=== PATIENT | male | born 1940 | race Hispanic/Latino ===

== ENCOUNTER 2016-11-28 18:09 | Emergency (ER) | payer MEDICARE, OTHER ==
[2016-11-28] MEDS ORDERED: Ondansetron HCl/PF 4 MG/2 ML Vial ONE (18:43)
[2016-11-28 18:52] LABS: #Basophils 0.1 thou/uL (0.0-0.2); #Eosinphils 0.3 thou/uL (0.0-0.7); #Lymphocytes 1.9 thou/uL (1.20-3.40); #Monocytes 0.5 thou/uL (0.11-0.59); #Neutrophils 2.2 thou/uL (1.40-6.50); %Basophils 1.7 % (0.0-1.0); %Eosinophils 6.1 % (0.0-10.0); %Lymphocytes 37.7 % (21.0-51.0); %Monocytes 9.3 % (0.0-10.0); %Neutrophils 45.3 % (42.0-75.0); Mean Corpuscular HGB CONC 33.7 g/dL (32.0-36.0); Mean Corpuscular Hemoglobin 32.1 pg (27.0-31.0); Mean Corpuscular Volume 95.2 fl (80.0-94.0); Mean Platelet Volume 6.4 fL (7.4-10.4); Platelet Count 192 thou/uL (130-400); RBC Distribution Width 11.5 % (11.5-14.5); Red Blood Cell (RBC) Count 4.37 mill/uL (4.70-6.10); White Blood Cell (WBC) Count 4.9 thou/uL (4.8-10.8)
[2016-11-28 18:54] LABS: INR-International Normal Ratio 1.1; PTT 24.9 SEC (22.9-36.1); Prothrombin Time 14.1 SEC (12.0-14.7)
[2016-11-28 18:56] LABS: Base Excess 2.8 mEq/L (-2 - +2); Hemoglobin (Hb) 13.7 g/dL (12.6-17.4)
[2016-11-28 19:05] LABS: ALT (SGPT) 14 U/L (0-55); AST (SGOT) 25 U/L (5-34); Albumin 3.5 g/dL (3.4-4.8); Alkaline Phosphatase 77 U/L (40-150); Anion Gap 12 mmol/L (10-20); BUN (Urea Nitrogen) 13 mg/dL (8.4-25.7); Bilirubin, Total 0.4 mg/dL (0.2-1.2); CK (CPK) 74 U/L (30-200); Calc. Creatinine Clearance 0 mL/min (70-130); Calcium 8.7 mg/dL (7.8-10.44); Carbon Dioxide 22 mmol/L (23-31); Chloride 107 mmol/L (98-107); Estimated GFR-MDRD 82; Globulin 3.8 g/dL (2.4-3.5); Glucose 96 mg/dL (83-110); Lipase 28 U/L (8-78); Protein, Total 7.3 g/dL (5.8-8.1); Sodium 137 mmol/L (136-145)
[2016-11-28 19:10] LABS: CKMB 1.1 ng/mL (0-6.6); Troponin I Less than 0.010 ng/mL (< 0.028)
[2016-11-28] MEDS ORDERED: Lidocaine Viscous Sol 2% 15 ml UD Cup ONE (20:01)
[2016-11-28] MEDS ORDERED: Mag-Al Plus 1200 MG/1200 MG/120 MG/30 ML UDCUP ONE (20:01)
[2016-11-28] MEDS ORDERED: Pantoprazole 40 MG VIAL ONE (20:01)
[2016-11-28 20:09] LABS: Bilirubin Negative (Negative); Blood, Urine Negative (Negative); Clarity Clear (Clear); Glucose, Urine (Dipstick) Negative (Negative); Leukocyte Negative (Negative); Nitrite Negative (Negative); Protein, Urine (Dipstick) Negative (Neg-Trace); pH, Urine 7.5 (5.0-9.0)
== END 2016-11-28 20:17 | disposition home or self-care (01) ==
LOC: BURERS 18:09
DX: K29.00 Acute gastritis without bleeding (principal); Z79.899 Other long term (current) drug therapy
CPT/HCPCS: 36416; 80053; 81003; 82550; 82553; 82805; 83605; 83690; 83880; 84484; 85025; 85610; 85730; 87040; 87086; 93005; 94760; 96374; 96375; C9113; J2405

== ENCOUNTER 2018-09-01 12:15 | Outpatient (CLI) | payer MEDICARE, OTHER ==
--- NOTE | 2018-09-01 13:44 | RAD ---
KUB: Comparison: None. History: Constipation. FINDINGS: Single view of the abdomen shows a nonspecific, nonobstructed bowel gas pattern. No suspicious calcif ications are seen. IMPRESSION: Unremarkable exam. POS: TAMIRH
--- NOTE | 2018-09-01 14:03 | RAD ---
THREE VIEWS LUMBOSACRAL SPINE: Comparison: None. History: Low back pain. FINDINGS: Three views of the lumbosacral spine shows normal height and alignment of the vertebral bodies withou t fracture or subluxation. There are small osteophytes throughout the lumbar spine. The L5-S1 interve rtebral disc is narrowed. Posterior facet arthrosis is seen in the lower lumbosacral spine. IMPRESSION: Degenerative changes of the lumbar spine without acute osseous abnormality. POS: CRYSTAL
== END 2018-09-01 12:16 | disposition home or self-care (01) ==
LOC: BURRAD 12:15
PROVIDERS: ATTEND Family Medicine
DX: M54.5 Low back pain (principal); K59.00 Constipation, unspecified; M47.816 Spondylosis without myelopathy or radiculopathy, lumbar region
CPT/HCPCS: 72100; 74018

== ENCOUNTER 2018-11-17 16:50 | Emergency (ER) | payer MEDICARE, OTHER ==
[2018-11-17 18:01] LABS: #Lymphocytes 1.3 thou/uL (1.20-3.40); #Monocytes 0.4 thou/uL (0.11-0.59); #Neutrophils 2.4 thou/uL (1.40-6.50); %Basophils 1.1 % (0.0-1.0); %Eosinophils 1.2 % (0.0-10.0); %Monocytes 8.5 % (0.0-10.0); %Neutrophils 58.2 % (42.0-75.0); Hemoglobin 14.9 g/dL (14.0-18.0); Mean Corpuscular HGB CONC 34.7 g/dL (32.0-36.0); Mean Corpuscular Hemoglobin 31.2 pg (27.0-31.0); Mean Corpuscular Volume 90.1 fL (78.0-98.0); Mean Platelet Volume 5.2 fL (7.4-10.4); Platelet Count 191 thou/uL (130-400); RBC Distribution Width 16.3 % (11.5-14.5); Red Blood Cell (RBC) Count 4.77 mill/uL (4.70-6.10); White Blood Cell (WBC) Count 4.1 thou/uL (4.8-10.8)
--- NOTE | 2018-11-17 18:07 | CT ---
EXAM: BRAIN CT WITHOUT IV CONTRAST: 11/17/18 HISTORY: Altered mental status. Fall. Mild atrophy and chronic white matter ischemic change. No mass or midline shift. No intra or extra-a xial hemorrhage. Sinuses and mastoids are clear. IMPRESSION: Mild atrophy and chronic white matter ischemic change. No mass or bleed. POS: RRE
--- NOTE | 2018-11-17 18:10 | RAD ---
UPRIGHT PORTABLE CHEST ONE VIEW: 11/17/18 HISTORY: Fever and back pain. COMPARISON: 02/05/14. FINDINGS: Heart size is normal. the lungs are clear. No confluent pneumonia, overt edema or pleural effusion. IMPRESSION: No acute intrathoracic disease. No evidence for pneumonia. Stable from prior study. POS: RRE
[2018-11-17 18:17] LABS: ALT (SGPT) 10 U/L (8-55); AST (SGOT) 17 U/L (5-34); Acetaminophen Less than 6.0 mcg/mL (10.0-30.0); Albumin 3.9 g/dL (3.4-4.8); Alcohol Less than 10 mg/dL (Less than 10); Alkaline Phosphatase 97 U/L (40-150); Anion Gap 12 mmol/L (10-20); BUN (Urea Nitrogen) 16 mg/dL (8.4-25.7); Bilirubin, Total 0.4 mg/dL (0.2-1.2); Calc. Creatinine Clearance 0 mL/min (70-130); Calcium 9.6 mg/dL (7.8-10.44); Carbon Dioxide 28 mmol/L (23-31); Chloride 103 mmol/L (98-107); Estimated GFR-MDRD 75; Globulin 3.9 g/dL (2.4-3.5); Glucose 84 mg/dL (83-110); Potassium 4.7 mmol/L (3.5-5.1); Protein, Total 7.8 g/dL (5.8-8.1); Salicylate Less than 8.0 mg/dL (15.0-30.0); Sodium 138 mmol/L (136-145)
== END 2018-11-17 19:05 | disposition home or self-care (01) ==
LOC: BURERS 16:50
DX: S00.83XA Contusion of other part of head, initial encounter (principal); K21.9 Gastro-esophageal reflux disease without esophagitis; M19.90 Unspecified osteoarthritis, unspecified site; W19.XXXA Unspecified fall, initial encounter; Z79.899 Other long term (current) drug therapy
CPT/HCPCS: 36415; 70450; 71045; 80053; 80307; 85025

== ENCOUNTER 2019-04-27 07:52 | Emergency (ER) | payer MEDICARE, OTHER ==
[2019-04-27] MEDS ORDERED: Iopamidol 370 76% 150 ML VIAL FS ONE (08:13)
[2019-04-27 08:35] LABS: #Basophils 0.1 thou/uL (0.0-0.2); #Eosinphils 0.1 thou/uL (0.0-0.7); #Lymphocytes 1.6 thou/uL (1.20-3.40); #Monocytes 0.4 thou/uL (0.11-0.59); #Neutrophils 1.9 thou/uL (1.40-6.50); %Basophils 1.9 % (0.0-1.0); %Eosinophils 2.3 % (0.0-10.0); %Lymphocytes 39.2 % (21.0-51.0); %Monocytes 9.4 % (0.0-10.0); %Neutrophils 47.3 % (42.0-75.0); Hemoglobin 13.8 g/dL (14.0-18.0); Mean Corpuscular HGB CONC 33.6 g/dL (32.0-36.0); Mean Corpuscular Hemoglobin 31.3 pg (27.0-31.0); Mean Corpuscular Volume 93.3 fL (78.0-98.0); Mean Platelet Volume 5.6 fL (7.4-10.4); Platelet Count 178 thou/uL (130-400); Red Blood Cell (RBC) Count 4.41 mill/uL (4.70-6.10); White Blood Cell (WBC) Count 3.9 thou/uL (4.8-10.8)
[2019-04-27 08:52] LABS: ALT (SGPT) 10 U/L (8-55); AST (SGOT) 16 U/L (5-34); Albumin 3.6 g/dL (3.4-4.8); Alkaline Phosphatase 75 U/L (40-150); Anion Gap 11 mmol/L (10-20); BUN (Urea Nitrogen) 14 mg/dL (8.4-25.7); Bilirubin, Total 0.6 mg/dL (0.2-1.2); Calc. Creatinine Clearance 0 mL/min (70-130); Calcium 9.3 mg/dL (7.8-10.44); Carbon Dioxide 27 mmol/L (23-31); Chloride 106 mmol/L (98-107); Estimated GFR-MDRD 80; Globulin 3.5 g/dL (2.4-3.5); Glucose 102 mg/dL (83-110); Lipase 16 U/L (8-78); Potassium 3.7 mmol/L (3.5-5.1); Protein, Total 7.1 g/dL (5.8-8.1); Sodium 140 mmol/L (136-145)
[2019-04-27 08:57] LABS: Bilirubin Negative (Negative); Blood, Urine Negative (Negative); Clarity Clear (Clear); Glucose, Urine (Dipstick) Negative (Negative); Leukocyte Negative (Negative); Nitrite Negative (Negative); Protein, Urine (Dipstick) Trace mg/dL (Neg-Trace)
--- NOTE | 2019-04-27 17:07 | CT ---
CT ABDOMEN AND PELVIS WITH CONTRAST 04/27/19 Comparison is made with the prior study of 05/29/18. The lung bases show extensive streaking that appears to be chronic fibrotic change. It was present be fore and has not changed much. A moderate sized hiatal hernia is present. The liver, spleen, pancreas , gallbladder, adrenal glands, aorta, and kidneys all showed no acute findings. The bowel shows no distention to suggest obstruction. No bowel wall thickening was present. A moderat e amount of fecal material is present in the colon. No free air or free fluid was seen. CT of the pelvis showed the prostate to appear slightly larger than it was before and it is perhaps a little more inhomogeneous. It was 5 cm wide. Some of the fat around it shows some slight streaking. I would wonder about the possibility of prostatitis. No pelvic masses or fluid collections were seen. There is a small fat filled left inguinal hernia. No free fluid was noted. Some degenerative changes are noted in the lumbar spine. IMPRESSION: 1. Slight enlargement and inhomogeneity of the prostate gland. If this correlates with the clini tessy presentation, then prostatitis might be considered. 2. Moderate sized hiatal hernia, stable. 3. Extensive fibrotic changes in the lung bases, very similar to the prior scan. POS: HOME
== END 2019-04-27 11:00 | disposition home or self-care (01) ==
LOC: BURERS 07:52
DX: N41.9 Inflammatory disease of prostate, unspecified (principal); R21 Rash and other nonspecific skin eruption; K21.9 Gastro-esophageal reflux disease without esophagitis; D64.9 Anemia, unspecified; M19.90 Unspecified osteoarthritis, unspecified site; Z79.899 Other long term (current) drug therapy; Z86.19 Personal history of other infectious and parasitic diseases
CPT/HCPCS: 51701; 74177; 80053; 81003; 83605; 83690; 84484; 85025; 87086; 93005

== ENCOUNTER 2019-10-06 16:49 | Inpatient (IN) | payer MEDICARE, OTHER ==
[2019-10-06 17:24] LABS: #Basophils 0.1 thou/uL (0.0-0.2); #Eosinphils 0.1 thou/uL (0.0-0.7); #Monocytes 0.4 thou/uL (0.11-0.59); #Neutrophils 2.5 thou/uL (1.40-6.50); %Basophils 1.4 % (0.0-1.0); %Eosinophils 1.5 % (0.0-10.0); %Lymphocytes 40.8 % (21.0-51.0); %Monocytes 7.2 % (0.0-10.0); %Neutrophils 49.1 % (42.0-75.0); Hemoglobin 14.7 g/dL (14.0-18.0); Mean Corpuscular HGB CONC 33.6 g/dL (32.0-36.0); Mean Corpuscular Hemoglobin 31.7 pg (27.0-31.0); Mean Corpuscular Volume 94.1 fL (78.0-98.0); Mean Platelet Volume 6.5 fL (7.4-10.4); Platelet Count 288 thou/uL (130-400); RBC Distribution Width 12.3 % (11.5-14.5); Red Blood Cell (RBC) Count 4.65 mill/uL (4.70-6.10)
[2019-10-06] MEDS ORDERED: Adacel (T-DAP) 0.5 ML SYRINGE ONE (18:00)
[2019-10-06 18:08] LABS: ALT (SGPT) 14 U/L (8-55); AST (SGOT) 21 U/L (5-34); Albumin 3.6 g/dL (3.4-4.8); Alkaline Phosphatase 92 U/L (40-110); Anion Gap 14 mmol/L (10-20); BUN (Urea Nitrogen) 20 mg/dL (8.4-25.7); Bilirubin, Total 0.3 mg/dL (0.2-1.2); Calc. Creatinine Clearance 0 mL/min (70-130); Calcium 9.5 mg/dL (7.8-10.44); Carbon Dioxide 24 mmol/L (23-31); Chloride 104 mmol/L (98-107); Estimated GFR-MDRD 80; Globulin 3.7 g/dL (2.4-3.5); Glucose 111 mg/dL (83-110); Potassium 3.9 mmol/L (3.5-5.1); Protein, Total 7.3 g/dL (5.8-8.1); Sodium 138 mmol/L (136-145)
[2019-10-06 18:30] LABS: Bilirubin Small (Negative); Blood, Urine Negative (Negative); Clarity Cloudy (Clear); Glucose, Urine (Dipstick) Negative (Negative); Leukocyte Negative (Negative); Nitrite Negative (Negative); Protein, Urine (Dipstick) 100 mg/dL (Neg-Trace)
--- NOTE | 2019-10-06 18:35 | RAD ---
PORTABLE CHEST: 10/06/19 An AP portable film at 1750 is compared with a 11/17/18 study. The degree of inspiration is shallow which crowds the lung markings. Allowing for this, the lungs are probably clear. The heart is normal in size. There is no vascular congestion. A little haziness is p resent in the left costophrenic angle but this could be related to the portable technique and shallow breath. No gross fractures were appreciated. IMPRESSION: No definite acute finding. POS: HOME
[2019-10-06 18:37] LABS: Bacteria/HPF Rare-Few HPF (None Seen); RBC/HPF 0-3 HPF (0-3); Squamous Epithelial 0-3 HPF (0-3); Transitional Epithelial 0-3 HPF (None Seen)
--- NOTE | 2019-10-06 18:37 | CT ---
CT OF THE BRAIN WITHOUT CONTRAST: 10/06/[address] shows normal size ventricles with no shift. No intracranial bleeding or extra-axial hematoma was seen. There is no sign of mass, edema, or acute stroke. Some soft tissue swelling is see n over the left frontal bone in the scalp but the underlying skull appears intact. No fractures were noted. The sphenoid sinus is clear. IMPRESSION: No acute intracranial findings. Report called to Dr. Patle at 3200 on 10/06/19. POS: HOME
[2019-10-06 18:38] LABS: Sperm/HPF 3+ HPF (None Seen)
--- NOTE | 2019-10-06 18:39 | CT ---
CT OF THE FACIAL BONES: 10/06/[address] of the face was done following trauma. Soft tissue swelling is seen over the left frontal r egion but the underlying skull appears intact. No facial fractures were seen. The nasal bones, orbita l rims, and zygomatic arches all appeared intact. The paranasal sinuses are clear. The mandible appea rs intact. The retro-orbital areas are normal in appearance. IMPRESSION: No acute bony findings. Report called to Dr. Patel at 7961 on 10/06/19. POS: HOME
--- NOTE | 2019-10-06 18:46 | CT ---
CT LUMBAR SPINE 10/06/[address] of the lumbar spine was performed for evaluation following trauma. Compression fractures are seen involving the superior end plates of L3 and L4. These were not present on an April 2019 CT of the abdomen. There is also a little dip in the superior end plate of L2 that may represent a minimal fracture as well. I am less sure whether this is new or old. The L3 and L4 f ractures look more acute. There is no retropulsion of fragments or significant malalignment of the sp ine. Findings by level follows: T12-L1: The cross-sectional area of the spinal canal at T12 is less than many but there are no trauma tic changes present. L1-L2: Degenerative changes in the facet joints. No acute findings. L2-L3: There are no abnormalities in the disc space or foramina. Fractures are seen through the super ior end plate of L3 with some compression of it. No displaced fragments were present. L3-L4: No disc or foraminal abnormalities are seen. There is a fracture through the superior end plat e of L4 and probably a vertical component that goes through the posterior one third of the vertebra. There is no vertebral displacement. L4-L5: No disc or foraminal abnormality. Mild facet arthritis. L5-S1: Facet arthritis bilaterally. No acute findings. IMPRESSION: 1. Fractures involving primarily the superior end plates of L3 and L4 vertebral bodies. The L4 v ertebral body probably has a vertical component to it as well. There may be a minimal injury to the s uperior end plate of L2 as well. None of these findings were present on an April 2019 CT of the abdo men. They are presumably acute. 2. Degenerative changes throughout the spine as noted above. Findings discussed with Dr. Patel at 1733 on 10/06/19. POS: HOME
--- NOTE | 2019-10-06 19:17 | CT ---
CT OF THE CERVICAL SPINE 10/06/[address] of the cervical spine was performed following trauma. No fracture, kiersten dislocation, or soft tissue swelling was seen. The C1 to dens distance is normal. There is very minor anterolisthesis of C6 on C 7 with disc space narrowing at this level. This appear s to be based on facet changes and not on acute bony change. Findings by level follows: C1-2: No acute finding. C2-3: Some facet arthritis and mild to moderate right foraminal narrowing. C3-4: Facet arthritis prominent on the right. Minor left foraminal narrowing. C4-5: Moderate bilateral foraminal narrowing with bilateral facet arthritis. C5-6: Mild to moderate bilateral foraminal narrowing, somewhat difficult to assess due to the angle o f the scan. Severe bilateral facet arthritis. C6-7: Difficult to assess foramina. Severe bilateral facet arthritis. C7-T1: No acute findings. T1-T2: No acute findings. T2-T3: No acute findings. The lung apices are clear and show no pneumothorax. No acute soft tissue abnormalities of the neck ar e noted. IMPRESSION: Degenerative changes as noted, worst in the lower cervical region Preliminary report called to Dr. Patel at 4232 on 10/06/2019. POS: HOME
[2019-10-06 19:27] VITALS: BMI 27.1
[2019-10-06] MEDS ORDERED: Ondansetron ODT 4 MG TAB PO PRN (20:30)
[2019-10-07] MEDS: Acetaminophen 325 MG TAB PO PRN ×2 (07:23→16:30)
[2019-10-07] MEDS: Enoxaparin Sodium 40 MG/0.4 ML SYRINGE SC SCH (08:51)
[2019-10-07] MEDS ORDERED: Prevnar 13-Val Conj/PF 0.5 ML SYRINGE IM ONE (09:00)
[2019-10-07] MEDS: Ibuprofen 800 MG TAB PO PRN (20:59)
[2019-10-08 05:31] LABS: Hemoglobin 11.7 g/dL (14.0-18.0); Platelet Count 210 thou/uL (130-400)
[2019-10-08 05:32] LABS: Calc. Creatinine Clearance 80 mL/min (70-130); Estimated GFR-MDRD Greater than 90
--- NOTE | 2019-10-08 07:44 | HP ---
CHIEF COMPLAINT: Generalized weakness. HISTORY OF PRESENT ILLNESS: A 78-year-old male presented to the [facility] Emergency Department yesterday evening for further evaluation status post multiple falls over the last 24 hours with associated complaints of low back pain. The patient has been living locally with his son and daughter who reports that he has had progressive weakness over the last 6 months to the point where he needs assistance with arising from a chair. His most recent fall was down three stairs and landing on a concrete surface on his left side and face. He had no loss of consciousness. Workup in the emergency department reveals findings consistent with acute fractures of his lumbar vertebrae including L2, L3, and L4. Workup beyond this was normal including his labs and imaging involving his facial bones, chest x-ray, cervical spine and brain. Secondary to the patient's deconditioned state and risk for further injury, he was admitted. Upon evaluation this morning, the daughter of the patient is present. She states that he does not use any assistive devices to aid ambulation. She confirms his progressive weakened state and multiple falls. She states his primary care physician has been Dr. Bran and that she had set this patient up with home health, although she is unable to name which home health agency; however, she does state that home health has not been present for the last couple of months. Review of our EMR records show the patient has established with Dr. Gupta within the last couple of years and was last seen in July 2019. Review of this note does display a diagnosis of dementia and noted APS involvement in regard to the patient's care. At this time, the patient does not endorse any significant pain. He reports his intake and output to be at baseline. Discussed with the daughter the need for the patient to participate with physical therapy and occupational therapy along with need for Member [employer] consult for possible placement to a long-term care facility to which she agrees. PAST MEDICAL HISTORY: Includes dementia, gastroesophageal reflux disease. PAST SURGICAL HISTORY: Skin cancer removed from the left side of face. SOCIAL HISTORY: Denies smoking or illicit drug use. Daughter of patient does report for him to have had alcohol abuse in the past. FAMILY HISTORY: Noncontributory. ALLERGIES: PENICILLIN AND BACTRIM. CURRENT MEDICATIONS: Nexium 20 mg daily. REVIEW OF SYSTEMS: Limited secondary to patient inability to communicate, this is partially due to language barrier and also to chronic low volume regarding his voice, is difficult to understand, but he does deny having any significant pain at this time. LABORATORY DATA: White blood cell count is 5.0, hemoglobin 14.7, hematocrit is 43.8, and platelets are 288. Sodium 138, potassium 3.9, BUN is 20, creatinine 0.92 with a GFR of 80, glucose 111, lactic acid 1.3, AST 21, ALT 14, troponin 0.016. IMAGIN10/06/2019, brain CT showed no acute intracranial findings. 2019, cervical spine CT showed degenerative changes as noted, worse in the lower cervical region. 10/06/2019, chest x-ray showed no definite acute finding. 10/06/2019, facial bones CT showed no acute bony findings. 10/06/2019, lumbar spine CT showed fractures involving primarily the superior endplate of L3 and L4 vertebral bodies. The L4 vertebral body probably has a vertical component to it as well. There may be a minimal injury to the superior endplate at L2 as well. None of these findings were present in April 2019 CT of the abdomen. They are presumably acute degenerative changes throughout the spine as noted above. PHYSICAL EXAMINATION: VITAL SIGNS: Temperature is 97.9, pulse is 85, respiratory rate is 20, oxygen is 96% on room air, and blood pressure is 116/62. GENERAL: The patient is alert. It is unclear as to his orientation status. Has a very low volume voice with mumbled speech and a flat affect. HEAD, EYES, EARS, NOSE, AND THROAT: Noted abrasion/contusion just superior and slightly lateral to the left eyebrow with left periorbital swelling and ecchymosis. Extraocular muscles are intact. Moist mucous membranes. NECK: Supple with no lymphadenopathy. He does have kyphosis. CARDIOVASCULAR: Regular rate and rhythm. Normal S1, S2. No murmurs, rubs, or gallops. RESPIRATORY: Clear to auscultation bilaterally without wheezes, rales, or rhonchi. ABDOMEN: Soft, nontender to palpation. No rebound. No guarding. No masses. EXTREMITIES: No clubbing, cyanosis, or edema. He currently has a peripheral IV to the right upper extremity. SKIN: As noted per head, eyes, ears, nose, and throat exam, he does have scattered abrasions to his lower extremities as well. NEUROLOGIC: Nonfocal with masklike facies. ASSESSMENT AND PLAN: 1. Generalized weakness. This has apparently been a progressive issue over a number of months resulting in multiple falls and apparently at some point he has had home health to try to help with this issue. However, per the daughter, this has not been accessible for the last couple months. In addition to this, he currently does not have any assistive devices to aid in ambulation further promoting his fall risk , and per review of records, there was an additional concern for parkinsonian features which would further increase risk for falls. Physical therapy and occupational therapy have been ordered. 2. Lumbar fractures at L2, L3, and L4. Secondary to the patient's apparent dementia and no significant pain I do not foresee the need to pursue specific intervention in regard to this, other than physical therapy and occupational therapy along with pain control. However, I do feel he would benefit from bracing of his lumbar spine as appropriate. 3. Dementia. It is unclear as to how long he has had this diagnosis and in what capacity. Potential Parkinson may be playing a role in this. Secondary to this diagnosis and his magnified fall risk, he would benefit from Member [employer] consultation for potential placement to a long-term care facility for 28/03 care. Daughter of the patient appears to be in agreement with this plan. 4. Gastroesophageal reflux disease. We will resume the patient's proton pump inhibitor. 5. Prophylaxis. We will provide Lovenox for DVT prophylaxis. Job ID: [id number] MTDD
[2019-10-08] MEDS: Ibuprofen 800 MG TAB PO PRN (08:40)
[2019-10-08] MEDS: Enoxaparin Sodium 40 MG/0.4 ML SYRINGE SC SCH (08:40)
[2019-10-08] MEDS ORDERED: Bisacodyl 10 MG SUPP PR PRN (10:30)
[2019-10-08] MEDS: Milk Of Magnesia 30 ML UDCUP PO PRN (12:58)
[2019-10-08] MEDS ORDERED: Tetracaine 0.5% OPHTH SOLN/PF 4 ML BOT ONE (18:58)
[2019-10-09 05:56] VITALS: BP 139/70; TEMP 98.3
[2019-10-09] MEDS: Acetaminophen 325 MG TAB PO PRN (07:37)
[2019-10-09] MEDS: Enoxaparin Sodium 40 MG/0.4 ML SYRINGE SC SCH (07:38)
[2019-10-09] MEDS: Milk Of Magnesia 30 ML UDCUP PO PRN (12:05)
--- NOTE | 2019-10-11 05:37 | PQF ---
[employer] Crystal Reports Winform ViewerCATIA MCDONALD ABDULLAHI POLLARD [id number] CLINICAL DOCUMENTATION CLARIFICATION FORM: POST DISCHARGE Addendum to original discharge summary date: ____ Late entry note date: 10/13/19 DATE: 10/11/2019 ATTN:ABDULLAHI POLLARD Please exercise your independent, professional judgment in responding to the clarification form. Clinical indicators are provided on the bottom of this form for your review Please check appropriate box(s): Kindly Provide Etiology generalized weakness [ x ] Dementia with Parkinson [ ] Dementia without Parkinson [ ] Other diagnosis [ ] Unable to determine In addition, please specify: Present on Admission (POA): [x] Yes [ ] No [ ] Unable to determine For continuity of documentation, please document condition throughout progress notes and discharge summary. Thank You. CLINICAL INDICATORS - SIGNS / SYMPTOMS / LABS generalized weakness - Documented in H&P on 10/07 by ABDULLAHI POLLARD concern for parkinsonian features which would further increase risk for falls - Documented in H&P on 10/07 by ABDULLAHI POLLARD Potential Parkinson may be playing on role in this secondary to this diagnosis & his magnified fall risk - Documented in H&P on 10/07 by ABDULLAHI POLLARD Dementia possible parkinsonism - Documented in scanned PNs pg#2 RISK FACTORS Hx of dementia - Documented in H&P on 10/07 by ABDULLAHI POLLARD L2,L3,L4 fracture 2/2 multiple falls - Documented in H&P on 10/07 by ABDULLAHI POLLARD TREATMENTS: PT and OT has been ordered - Documented in H&P on 10/07 by ABDULLAHI POLLARD Placement to a long-term care facility for 24/7 care - Documented in H&P on by ABDULLAHI POLLARD [employer] Crystal Reports Winform Viewer(This form is maintained as a part of the permanent medical record) 2015 [employer] All Rights Reserved [email or web address]
== END 2019-10-09 13:54 | disposition swing bed (61) | DRG 57 ==
LOC: BURERS 16:49 → BURMED 18:44
PROVIDERS: ADMIT Family Medicine; ATTEND Family Medicine
DX: G20 Parkinson's disease (principal); S32.029A Unspecified fracture of second lumbar vertebra, initial encounter for closed fracture; S32.039A Unspecified fracture of third lumbar vertebra, initial encounter for closed fracture; S32.049A Unspecified fracture of fourth lumbar vertebra, initial encounter for closed fracture; R53.1 Weakness; F03.90 Unspecified dementia, unspecified severity, without behavioral disturbance, psychotic disturbance, mood disturbance, and anxiety; K21.9 Gastro-esophageal reflux disease without esophagitis; Z85.828 Personal history of other malignant neoplasm of skin; Z88.0 Allergy status to penicillin; Z88.8 Allergy status to other drugs, medicaments and biological substances; Z79.899 Other long term (current) drug therapy; W10.8XXA Fall (on) (from) other stairs and steps, initial encounter; K59.00 Constipation, unspecified; R40.2142 Coma scale, eyes open, spontaneous, at arrival to emergency department; R40.2252 Coma scale, best verbal response, oriented, at arrival to emergency department; R40.2362 Coma scale, best motor response, obeys commands, at arrival to emergency department; F02.80 Dementia in other diseases classified elsewhere, unspecified severity, without behavioral disturbance, psychotic disturbance, mood disturbance, and anxiety
CPT/HCPCS: 36415; 70450; 70486; 71045; 72125; 72131; 80053; 81003; 81015; 82565; 83605; 84484; 85014; 85018; 85025; 85049; 90471; 90670; 90715; 93005; 94760; G0009; J1650; L0120

== ENCOUNTER 2019-10-09 11:04 | Inpatient (IN) | payer MEDICARE, OTHER ==
[2019-10-09] MEDS ORDERED: Ondansetron ODT 4 MG TAB PO PRN (15:34)
[2019-10-09] MEDS: Bisacodyl 10 MG SUPP PR PRN (16:54)
[2019-10-09] MEDS: Gentamicin Ophth Ointment 0.3% 3.5 gm Tube L EYE SCH (21:04)
[2019-10-10 05:20] LABS: Hemoglobin 11.6 g/dL (14.0-18.0); Platelet Count 224 thou/uL (130-400)
[2019-10-10 05:29] LABS: Calc. Creatinine Clearance 87 mL/min (70-130); Estimated GFR-MDRD Greater than 90
[2019-10-10] MEDS: Enoxaparin Sodium 40 MG/0.4 ML SYRINGE SC SCH (07:31)
[2019-10-10] MEDS: Acetaminophen 325 MG TAB PO PRN ×2 (07:32→16:44)
[2019-10-10] MEDS: Ibuprofen 800 MG TAB PO PRN (10:18)
[2019-10-10] MEDS: Gentamicin Ophth Ointment 0.3% 3.5 gm Tube L EYE SCH (14:35)
[2019-10-10] MEDS ORDERED: Prevnar 13-Val Conj/PF 0.5 ML SYRINGE IM ONE (15:30)
[2019-10-10] MEDS: Bisacodyl 10 MG SUPP PR PRN (16:49)
[2019-10-10] MEDS: Erythromycin Base 0.5% Ophth Oint 3.5 gm Tube L EYE SCH (20:21)
[2019-10-11] MEDS ORDERED: Erythromycin Base 0.5% Ophth Oint 3.5 gm Tube ONE (08:33)
[2019-10-11] MEDS: Ibuprofen 800 MG TAB PO PRN (09:09)
[2019-10-11] MEDS: Acetaminophen 325 MG TAB PO PRN (09:09)
[2019-10-11] MEDS: Erythromycin Base 0.5% Ophth Oint 3.5 gm Tube L EYE SCH ×2 (09:10→20:18)
[2019-10-11] MEDS: Enoxaparin Sodium 40 MG/0.4 ML SYRINGE SC SCH (09:10)
[2019-10-12] MEDS: Ibuprofen 800 MG TAB PO PRN ×2 (02:32→12:17)
[2019-10-12] MEDS: Milk Of Magnesia 30 ML UDCUP PO PRN (08:29)
[2019-10-12] MEDS: Enoxaparin Sodium 40 MG/0.4 ML SYRINGE SC SCH (08:29)
[2019-10-12] MEDS: Erythromycin Base 0.5% Ophth Oint 3.5 gm Tube L EYE SCH ×2 (08:29→20:08)
[2019-10-12] MEDS: Acetaminophen 325 MG TAB PO PRN (12:17)
[2019-10-13] MEDS: Ibuprofen 800 MG TAB PO PRN ×2 (00:04→21:44)
[2019-10-13] MEDS ORDERED: Erythromycin Base 0.5% Ophth Oint 3.5 gm Tube ONE (08:55)
[2019-10-13] MEDS: Erythromycin Base 0.5% Ophth Oint 3.5 gm Tube L EYE SCH ×2 (09:03→20:30)
[2019-10-13] MEDS: Milk Of Magnesia 30 ML UDCUP PO PRN (09:03)
[2019-10-13] MEDS: Enoxaparin Sodium 40 MG/0.4 ML SYRINGE SC SCH (09:03)
[2019-10-13] MEDS: Bisacodyl 10 MG SUPP PR PRN (12:17)
[2019-10-13] MEDS: Acetaminophen 325 MG TAB PO PRN (12:34)
[2019-10-14] MEDS: Erythromycin Base 0.5% Ophth Oint 3.5 gm Tube L EYE SCH ×2 (09:15→20:50)
[2019-10-14] MEDS: Enoxaparin Sodium 40 MG/0.4 ML SYRINGE SC SCH (09:15)
[2019-10-14] MEDS: Ibuprofen 800 MG TAB PO PRN ×2 (13:40→20:49)
[2019-10-15] MEDS: Acetaminophen 325 MG TAB PO PRN ×3 (04:54→17:58)
[2019-10-15 06:15] VITALS: BMI 27.3
[2019-10-15] MEDS: Ibuprofen 800 MG TAB PO PRN ×2 (09:29→20:30)
[2019-10-15] MEDS: Enoxaparin Sodium 40 MG/0.4 ML SYRINGE SC SCH (09:29)
[2019-10-15] MEDS: Erythromycin Base 0.5% Ophth Oint 3.5 gm Tube L EYE SCH ×2 (09:29→20:24)
[2019-10-16] MEDS: Enoxaparin Sodium 40 MG/0.4 ML SYRINGE SC SCH (08:26)
[2019-10-16] MEDS: Erythromycin Base 0.5% Ophth Oint 3.5 gm Tube L EYE SCH ×2 (08:26→20:34)
[2019-10-16] MEDS: Ibuprofen 800 MG TAB PO PRN ×2 (08:26→20:33)
[2019-10-16] MEDS: Acetaminophen 325 MG TAB PO PRN ×2 (11:54→18:36)
[2019-10-17] MEDS: Acetaminophen 325 MG TAB PO PRN ×2 (05:04→20:52)
[2019-10-17] MEDS: Enoxaparin Sodium 40 MG/0.4 ML SYRINGE SC SCH (08:42)
[2019-10-17] MEDS: Erythromycin Base 0.5% Ophth Oint 3.5 gm Tube L EYE SCH ×2 (08:43→20:51)
[2019-10-17] MEDS: Milk Of Magnesia 30 ML UDCUP PO PRN (14:07)
[2019-10-17] MEDS: Ibuprofen 800 MG TAB PO PRN (15:07)
[2019-10-18] MEDS: Ibuprofen 800 MG TAB PO PRN ×2 (09:05→20:02)
[2019-10-18] MEDS: Erythromycin Base 0.5% Ophth Oint 3.5 gm Tube L EYE SCH ×2 (09:05→20:04)
[2019-10-18] MEDS: Enoxaparin Sodium 40 MG/0.4 ML SYRINGE SC SCH (09:05)
[2019-10-18] MEDS: Milk Of Magnesia 30 ML UDCUP PO PRN (13:41)
[2019-10-18] MEDS: Acetaminophen 325 MG TAB PO PRN (15:37)
[2019-10-19] MEDS: Enoxaparin Sodium 40 MG/0.4 ML SYRINGE SC SCH (09:22)
[2019-10-19] MEDS: Erythromycin Base 0.5% Ophth Oint 3.5 gm Tube L EYE SCH (09:22)
[2019-10-19] MEDS: Milk Of Magnesia 30 ML UDCUP PO PRN (16:20)
[2019-10-20] MEDS: Enoxaparin Sodium 40 MG/0.4 ML SYRINGE SC SCH (08:52)
[2019-10-20] MEDS: Milk Of Magnesia 30 ML UDCUP PO PRN (12:12)
[2019-10-20] MEDS: Bisacodyl 10 MG SUPP PR PRN (16:11)
[2019-10-21 05:29] LABS: Anion Gap 8 mmol/L (10-20); BUN (Urea Nitrogen) 13 mg/dL (8.4-25.7); Calc. Creatinine Clearance 85 mL/min (70-130); Calcium 8.1 mg/dL (7.8-10.44); Carbon Dioxide 24 mmol/L (23-31); Chloride 108 mmol/L (98-107); Estimated GFR-MDRD Greater than 90; Glucose 104 mg/dL (83-110); Potassium 3.9 mmol/L (3.5-5.1); Sodium 136 mmol/L (136-145)
[2019-10-21 05:30] LABS: #Eosinphils 0.2 thou/uL (0.0-0.7); #Lymphocytes 1.7 thou/uL (1.20-3.40); #Monocytes 0.4 thou/uL (0.11-0.59); #Neutrophils 2.1 thou/uL (1.40-6.50); %Eosinophils 3.5 % (0.0-10.0); %Lymphocytes 38.4 % (21.0-51.0); %Monocytes 8.9 % (0.0-10.0); %Neutrophils 48.2 % (42.0-75.0); Hemoglobin 10.4 g/dL (14.0-18.0); Mean Corpuscular HGB CONC 34.4 g/dL (32.0-36.0); Mean Corpuscular Hemoglobin 32.1 pg (27.0-31.0); Mean Corpuscular Volume 93.3 fL (78.0-98.0); Mean Platelet Volume 5.5 fL (7.4-10.4); Platelet Count 225 thou/uL (130-400); RBC Distribution Width 12.5 % (11.5-14.5); Red Blood Cell (RBC) Count 3.24 mill/uL (4.70-6.10); White Blood Cell (WBC) Count 4.4 thou/uL (4.8-10.8)
[2019-10-21] MEDS: Polyethylene Glycol 3350 17 GM Packet PO SCH (08:59)
[2019-10-21] MEDS: Enoxaparin Sodium 40 MG/0.4 ML SYRINGE SC SCH (08:59)
[2019-10-21] MEDS: Ibuprofen 800 MG TAB PO PRN (20:42)
[2019-10-22] MEDS: Polyethylene Glycol 3350 17 GM Packet PO SCH (08:40)
[2019-10-22] MEDS: Enoxaparin Sodium 40 MG/0.4 ML SYRINGE SC SCH (08:40)
[2019-10-22] MEDS: Ibuprofen 800 MG TAB PO PRN (14:30)
[2019-10-22] MEDS: Acetaminophen 325 MG TAB PO PRN (18:03)
[2019-10-23] MEDS: Polyethylene Glycol 3350 17 GM Packet PO SCH (08:19)
[2019-10-23] MEDS: Enoxaparin Sodium 40 MG/0.4 ML SYRINGE SC SCH (08:19)
[2019-10-23] MEDS: Ibuprofen 800 MG TAB PO PRN (17:10)
[2019-10-24] MEDS: Ibuprofen 800 MG TAB PO PRN (08:39)
[2019-10-24] MEDS: Enoxaparin Sodium 40 MG/0.4 ML SYRINGE SC SCH (08:39)
[2019-10-24] MEDS: Polyethylene Glycol 3350 17 GM Packet PO SCH (08:39)
[2019-10-25] MEDS: Ibuprofen 800 MG TAB PO PRN ×2 (02:17→12:09)
[2019-10-25] MEDS: Polyethylene Glycol 3350 17 GM Packet PO SCH (08:39)
[2019-10-25] MEDS: Enoxaparin Sodium 40 MG/0.4 ML SYRINGE SC SCH (08:39)
[2019-10-25] MEDS: Bisacodyl 10 MG SUPP PR PRN (13:44)
[2019-10-25] MEDS: Acetaminophen 325 MG TAB PO PRN (22:20)
[2019-10-26] MEDS: Polyethylene Glycol 3350 17 GM Packet PO SCH (08:44)
[2019-10-26] MEDS: Enoxaparin Sodium 40 MG/0.4 ML SYRINGE SC SCH (08:45)
[2019-10-26 09:01] LABS: Hemoglobin 11.1 g/dL (14.0-18.0); Platelet Count 257 thou/uL (130-400)
[2019-10-27] MEDS: Acetaminophen 325 MG TAB PO PRN (04:27)
[2019-10-27] MEDS: Polyethylene Glycol 3350 17 GM Packet PO SCH (08:33)
[2019-10-27] MEDS: Enoxaparin Sodium 40 MG/0.4 ML SYRINGE SC SCH (08:34)
[2019-10-27 09:01] VITALS: BP 114/62; TEMP 97.9
--- NOTE | 2019-10-29 21:16 | DIS ---
DATE OF ADMISSION: 10/09/2019 DATE OF DISCHARGE: 10/27/2019 Date of admission to inpatient, October 06, 2019. Date of discharge to alf unit, October 09, 2019. Date of discharge from alf unit, October 27, 2019. ADMISSION DIAGNOSES: 1. Generalized weakness. 2. Lumbar fracture at L2, L3, and L4. 3. Dementia. 4. Gastroesophageal reflux disease. DISCHARGE DIAGNOSES: 1. Generalized weakness. 2. Lumbar fractures at L2, L3, and L4. 3. Dementia, suspect due to Lewy body. 4. Gastroesophageal reflux disease. 5. Parkinson disease. 6. Constipation. HISTORY AND PHYSICAL: Please see dictated report from his acute admission October 06, 2019. PROCEDURES: 1. Brain CT on October 06 showed no acute intracranial findings. 2. Cervical spine CT on October 06 shows degenerative changes, worst in the lower cervical region. No acute findings. 3. Chest x-ray on October 06, no definite acute finding. 4. Facial bone CT on October 06, no acute bony findings. 5. Lumbar spine CT on October 06 shows fractures involving primarily the superior endplates of L3 and L4 vertebral bodies. The L4 vertebral body probably has a vertical component to it as well. There may be a minimal injury to the superior endplate of L2 as well. None of the findings were present in April 2019 CT scan of the abdomen. They are presumably acute. Degenerative changes throughout the spine. HOSPITAL AND ALF COURSE: Mr. Dozier is a 78-year-old gentleman, who presented to the emergency room for evaluation here at [place] after a fall. He subsequently had imaging as above that confirmed a suspected acute fracture of L2 through L4 and overall generalized weakness. He was tender to this region, but not excruciatingly so. Therefore, he was admitted for physical and occupational therapy. A lumbar spinal arthrosis brace was fitted to the patient and he is to use that while upright, greater than 30 degrees for at least six weeks. He has had compliance, but has had reports of needing cues to remember to apply the brace; however, he is able to put it on by himself at this point. His pain was significantly controlled and he improved with therapy to the point of being able to ambulate greater than 300 feet with a rolling walker and standby assist. However, due to his frequent needs of cues and suspected Lewy body dementia with suspected underlying Parkinson disease, it was recommended that the patient required 24-hour supervision. Initially, the family was looking into long-term care, but was unable to complete the application process prior to his discharge date. Therefore, they have agreed to provide 24 hours supervision for him at home. He will follow up with me in the clinic. I did request records from Dr. Bran to clarify possible history of Parkinson's. He does have masklike facies, forced whisper to his voice and monotone, as well as cogwheel rigidity. He does not have a tremor. I do not know if antiparkinsonian medications would be beneficial at this point due to the severity. We will address this in the outpatient setting and try to get a Neurology referral going. His stay was complicated by intermittent constipation, which was relieved with daily MiraLAX. DISPOSITION: Discharged to home with 24 hours supervision with family and home health for alf, PT and OT. MEDICATIONS: 1. MiraLAX 17 g daily. 2. Zofran ODT 4 mg p.o. q.6 hours p.r.n. nausea. 3. Motrin 800 mg p.o. t.i.d. p.r.n. 4. Nexium 40 mg p.o. daily. 5. Tylenol 650 mg p.o. q.6 hours p.r.n. pain. FOLLOWUP: The patient will follow up with me, Dr. Halie Gupta in approximately 7 to 10 days. Job ID: [id number]
== END 2019-10-27 08:50 | disposition home or self-care (01) | DRG 561 ==
LOC: BURMED 13:55
PROVIDERS: ADMIT Family Medicine; ATTEND Family Medicine
DX: S32.028D Other fracture of second lumbar vertebra, subsequent encounter for fracture with routine healing (principal); K21.9 Gastro-esophageal reflux disease without esophagitis; G20 Parkinson's disease; F02.80 Dementia in other diseases classified elsewhere, unspecified severity, without behavioral disturbance, psychotic disturbance, mood disturbance, and anxiety; K59.00 Constipation, unspecified; W18.39XA Other fall on same level, initial encounter; Y93.89 Activity, other specified; Y92.89 Other specified places as the place of occurrence of the external cause; S32.038D Other fracture of third lumbar vertebra, subsequent encounter for fracture with routine healing; S32.048D Other fracture of fourth lumbar vertebra, subsequent encounter for fracture with routine healing; G31.83 Neurocognitive disorder with Lewy bodies
CPT/HCPCS: 36415; 80048; 82565; 85014; 85018; 85025; 85049; J1650

== ENCOUNTER 2020-04-21 08:21 | Emergency (ER) | payer MEDICARE, OTHER ==
[2020-04-21 09:07] LABS: Bilirubin Negative (Negative); Blood, Urine Trace (Negative); Clarity Clear (Clear); Glucose, Urine (Dipstick) Negative (Negative); Ketone, Urine Negative (Negative); Leukocyte Negative (Negative); Nitrite Negative (Negative); Protein, Urine (Dipstick) Negative (Neg-Trace); Specific Gravity, Urine 1.025 (1.005-1.030); Urobilinogen 0.2 mg/dL (Less than 2); pH, Urine 6.5 (5.0-9.0)
[2020-04-21 09:23] LABS: Bacteria/HPF Rare-Few HPF (None Seen); RBC/HPF 0-3 HPF (0-3); Squamous Epithelial 0-3 HPF (0-3); WBC/HPF 0-3 HPF (0-3)
--- NOTE | 2020-04-21 09:56 | RAD ---
2 views of the chest: 04/21/2020 COMPARISON: 10/06/2019 HISTORY: Pain FINDINGS: No pneumothorax or pleural fluid. No focal consolidation or alveolar edema. Heart and media stinal contours are grossly unremarkable. Lateral imaging demonstrates multilevel mid thoracic spine disc space narrowing and degenerative endplate change. There is an old mid thoracic spine anter ior wedge compression fracture. IMPRESSION: No focal consolidation or alveolar edema.
[2020-04-21] MEDS ORDERED: Cephalexin 250 MG CAP ONE (10:22)
== END 2020-04-21 10:37 | disposition home or self-care (01) ==
LOC: BURERS 08:21
DX: J02.9 Acute pharyngitis, unspecified (principal)
CPT/HCPCS: 71046; 81003; 81015; 87081; 87430

== ENCOUNTER → 2020-05-03 | Emergency (ER) | payer MEDICARE, OTHER ==
[2020-05-03 05:46] LABS: #Basophils 0.1 thou/uL (0.0-0.2); #Eosinphils 0.2 thou/uL (0.0-0.7); #Monocytes 0.4 thou/uL (0.11-0.59); #Neutrophils 1.8 thou/uL (1.40-6.50); %Basophils 1.7 % (0.0-1.0); %Eosinophils 3.7 % (0.0-10.0); %Lymphocytes 45.5 % (21.0-51.0); %Monocytes 8.1 % (0.0-10.0); %Neutrophils 41.1 % (42.0-75.0); Hemoglobin 10.8 g/dL (14.0-18.0); Mean Corpuscular HGB CONC 30.6 g/dL (32.0-36.0); Mean Corpuscular Hemoglobin 24.6 pg (27.0-31.0); Mean Corpuscular Volume 80.2 fL (78.0-98.0); Mean Platelet Volume 6.3 fL (7.4-10.4); Platelet Count 232 thou/uL (130-400); Red Blood Cell (RBC) Count 4.41 mill/uL (4.70-6.10); White Blood Cell (WBC) Count 4.4 thou/uL (4.8-10.8)
[2020-05-03 05:52] LABS: ALT (SGPT) 14 U/L (8-55); AST (SGOT) 15 U/L (5-34); Albumin 3.4 g/dL (3.4-4.8); Alkaline Phosphatase 86 U/L (40-110); Anion Gap 13 mmol/L (10-20); Anisocytosis SLIGHT = 6-15 cells (100X) (0-5/hpf); BUN (Urea Nitrogen) 19 mg/dL (8.4-25.7); Bilirubin, Total 0.5 mg/dL (0.2-1.2); Calc. Creatinine Clearance 0 mL/min (70-130); Calcium 8.8 mg/dL (7.8-10.44); Carbon Dioxide 23 mmol/L (23-31); Chloride 105 mmol/L (98-107); Estimated GFR-MDRD 79; Globulin 3.4 g/dL (2.4-3.5); Glucose 114 mg/dL (83-110); MDiff Complete? YES; Platelet Morphology Comment Appears Adequate; Potassium 3.5 mmol/L (3.5-5.1); Protein, Total 6.8 g/dL (5.8-8.1); Sodium 137 mmol/L (136-145)
[2020-05-03 06:08] LABS: Bilirubin Small (Negative); Blood, Urine Negative (Negative); Clarity Clear (Clear); Glucose, Urine (Dipstick) Negative (Negative); Ketone, Urine Negative (Negative); Leukocyte Negative (Negative); Nitrite Negative (Negative); Protein, Urine (Dipstick) Negative (Neg-Trace); pH, Urine 5.5 (5.0-9.0)
[2020-05-03 06:09] LABS: Specific Gravity, Urine 1.028 (1.002-1.036)
--- NOTE | 2020-05-03 10:42 | CT ---
PRELIMINARY REPORT/[facility]/EMERGENCY AFTER HOURS PROCEDURE: EXAM: CT Abdomen and Pelvis with Intravenous Contrast CLINICAL HISTORY: LLQ ABD PAIN TECHNIQUE: Axial computed tomography images of the abdomen and pelvis with intravenous contrast. CONTRAST: With; ISO 370, 100mL COMPARISON: CT - CT ABDOMEN PELVIS W CON - 04/27/2019 09:22 AM CDT FINDINGS: LUNG BASES: No basilar airspace consolidation or pleural effusion. Retrocardiac hiatal hernia. LIVER: Fatty infiltration of the liver. The vein is patent. GALLBLADDER AND BILE DUCTS: Unremarkable. No calcified stone. No ductal dilation. PANCREAS: Unremarkable. SPLEEN: Unremarkable. ADRENAL GLANDS: Unremarkable. KIDNEYS, URETERS, AND BLADDER: Unremarkable. No hydronephrosis or nephrolithiasis. No ureteral or bladder calculi. STOMACH AND BOWEL: No obstruction. No wall thickening. No CT evidence of colitis or acute diverticulitis. APPENDIX: No CT evidence for appendicitis. PERITONEUM: No free fluid. No free air. LYMPH NODES: No lymphadenopathy. VASCULATURE: No aortic aneurysm. BONES: Old fracture involving L4 vertebra. Acute/subacute fracture involving L3 vertebra. Approximately 30 % height loss. Osteopenia seen. ABDOMINAL WALL AND SOFT TISSUES: Unremarkable. IMPRESSION: Acute/subacute fracture involving L3 vertebra with approximately 30% height loss. Retrocardiac hiatal hernia. ELECTRONICALLY SIGNED BY: Bon Adamson MD May 03, 2020 6:27:04 AM CDT This report is intended for review by the ordering physician only, in accordance of law. If you recei ve this report in error, please call [facility] at [phone]. FINAL REPORT CT ABDOMEN AND PELVIS WITH CONTRAST: Date: 05/03/2020 Comparison is made with the 04/27/2019 study. The lung bases are clear, except for some minor basilar scarring. There is actually less change in th e right lower lobe posteriorly than last time. The liver, spleen, pancreas, adrenal glands, kidneys, gallbladder, and abdominal aorta showed no acut e findings and no adverse change since the last scan. A moderate sized hiatal hernia is present as us ual in this patient. The bowel shows no distention to suggest obstruction. No bowel well thickening was seen to suggest in flammatory change, nor was there any sign of diverticulitis or appendicitis. No free air or free flui d was present. CT of the pelvis was remarkable only for a large, slightly inhomogeneous prostate gland. No masses, a denopathy, free fluid, or inflammatory change was seen. Attention is drawn to the lumbar spine. An old compression of L4 is present that has really not oliva ed much over time; however, there is a new definite compression of the L3 vertebral body. This is lik frank acute or subacute. The bones are osteopenic. The bony pelvis appeared intact. IMPRESSION: 1. No findings to explain the patient's left lower quadrant pain. 2. Moderate size hiatal hernia, stable. 3. New significant compression of the L3 vertebral body since last year. The L4 compression is long standing and unchanged. Report in agreement with preliminary reading by [facility]. POS: HOME
== END ==
LOC: BURERS 05:01
DX: M48.56XA Collapsed vertebra, not elsewhere classified, lumbar region, initial encounter for fracture (principal)
CPT/HCPCS: 74177; 80053; 81003; 83605; 84484; 85025; 93005

== ENCOUNTER 2020-10-18 12:00 | Emergency (ER) | payer MEDICARE, OTHER | END 2020-10-18 14:35 | disposition home or self-care (01) | LOC: BURERS 12:00 | DX: S00.03XA Contusion of scalp, initial encounter (principal); S10.93XA Contusion of unspecified part of neck, initial encounter; K21.9 Gastro-esophageal reflux disease without esophagitis; Z79.899 Other long term (current) drug therapy; W19.XXXA Unspecified fall, initial encounter | CPT/HCPCS: 70450; 72125 ==

== ENCOUNTER 2023-05-07 23:28 | Emergency (ER) | payer MEDICARE, MEDICAID ==
[2023-05-08 00:44] LABS: Bilirubin Small (Negative); Blood, Urine Large (Negative); Clarity Clear (Clear); Glucose, Urine (Dipstick) Negative (Negative); Ketone, Urine Trace mg/dL (Negative); Leukocyte Small (Negative); Nitrite Negative (Negative); Protein, Urine (Dipstick) > or equal to 300 mg/dL (Neg-Trace); Specific Gravity, Urine 1.025 (1.005-1.030)
[2023-05-08 00:50] LABS: Bacteria/HPF Rare-Few HPF (None Seen); CAUTI Indications for Culture Alt mental st,lethar; RBC/HPF Greater than 50 HPF (0-3); Squamous Epithelial 0-3 HPF (0-3)
[2023-05-08 00:52] LABS: Urine Culture Reflex Yes Yes
== END 2023-05-08 02:38 | disposition home or self-care (01) ==
LOC: BURERS 23:28
DX: R31.0 Gross hematuria (principal); I10 Essential (primary) hypertension; K21.9 Gastro-esophageal reflux disease without esophagitis; G20 Parkinson's disease; Z79.899 Other long term (current) drug therapy
CPT/HCPCS: 51702; 81001; 87077; 87086

== ENCOUNTER 2024-04-29 17:10 | Emergency (ER) | payer MEDICARE, MEDICAID ==
[2024-04-29] MEDS ORDERED: Ondansetron PF 4 MG/2 ML Vial ONE (17:47)
[2024-04-29 18:03] LABS: #Lymphocytes 0.7 thou/uL (1.20-3.40); #Monocytes 0.3 thou/uL (0.11-0.59); #Neutrophils 6.5 thou/uL (1.40-6.50); %Basophils 0.5 % (0.0-1.0); %Eosinophils 0.1 % (0.0-10.0); %Lymphocytes 9.7 % (21.0-51.0); %Monocytes 3.7 % (0.0-10.0); Hematocrit 37.2 % (42.0-52.0); Hemoglobin 11.7 g/dL (14.0-18.0); Mean Corpuscular HGB CONC 31.3 g/dL (32.0-36.0); Mean Corpuscular Hemoglobin 22.8 pg (27.0-31.0); Mean Corpuscular Volume 72.7 fl (78.0-98.0); Mean Platelet Volume 5.6 fL (7.4-10.4); Platelet Count 249 10x3/uL (130-400); RBC Distribution Width 17.9 % (11.5-14.5); Red Blood Cell (RBC) Count 5.12 mill/uL (4.70-6.10); White Blood Cell (WBC) Count 7.5 10x3/uL (4.8-10.8)
[2024-04-29 18:14] LABS: ALT (SGPT) 12 U/L (8-55); AST (SGOT) 15 U/L (5-34); Albumin 3.5 g/dL (3.4-4.8); Alkaline Phosphatase 88 U/L (40-110); Anion Gap 14 mmol/L (10-20); BUN (Urea Nitrogen) 19 mg/dL (8.4-25.7); Bilirubin, Total 0.3 mg/dL (0.2-1.2); Calc. Creatinine Clearance 0 mL/min (70-130); Calcium 9.3 mg/dL (7.8-10.44); Carbon Dioxide 22 mmol/L (23-31); Chloride 103 mmol/L (98-107); Estimated GFR 77; Globulin 4.4 g/dL (2.4-3.5); Glucose 142 mg/dL (83-110); Lipase 18 U/L (8-78); Potassium 4.1 mmol/L (3.5-5.1); Protein, Total 7.9 g/dL (5.8-8.1); Sodium 135 mmol/L (136-145)
[2024-04-29 18:16] LABS: Troponin I Less than 0.010 ng/mL (< 0.028)
[2024-04-29 18:25] LABS: MDiff Complete? YES; Microcytosis SLIGHT = 6-15 cells (100X) (0-5/hpf); Ovalocytes SLIGHT = 2-5 cells (100X) (0-1/hpf); Platelet Adequacy Comment Appears Adequate
== END 2024-04-29 19:27 | disposition home or self-care (01) ==
LOC: BURERS 17:10
DX: R11.2 Nausea with vomiting, unspecified (principal); I10 Essential (primary) hypertension; Z87.891 Personal history of nicotine dependence
CPT/HCPCS: 80053; 83690; 84484; 85025; 93005; 94760; J2405; 36415; 96361; 96374